=== PATIENT | female | born 1950 | race Caucasian/White ===

== ENCOUNTER 2020-11-02 11:38 | Emergency (ER) | payer OTHER ==
[~2020-11-02] VITALS: Ht 160 cm; Wt 81.6 kg
[2020-11-02] MEDS ORDERED: ACETAMINOPHEN 325 MG TAB PO ONE (12:45)
[2020-11-02 13:14] LABS: Urine Bacteria NONE SEEN /hpf (None Seen); Urine Blood Negative /uL (Negative); Urine Specific Gravity 1.011 (1.001-1.035); Urine WBC <1 /hpf (0 - 5)
[2020-11-02 13:24] LABS: Alcohol, Urine < 3.0 mg/dL (0-10); Amphetamine Screen, Urine NEGATIVE (NEGATIVE); Barbiturate Scree,Urine NEGATIVE (NEGATIVE); Cannabinoid Screen, Urine POSITIVE (NEGATIVE); Opiate Scree,Urine NEGATIVE (NEGATIVE)
[2020-11-02 13:32] LABS: Benzodiazephine Screen, Urine NEGATIVE (NEGATIVE); Cocaine Screen, Urine NEGATIVE (NEGATIVE); Phencyclidine Screen, Urine NEGATIVE (NEGATIVE)
[2020-11-02 13:53] LABS: Basophils # (auto) 0.1 10 ^3/uL (0-0.2); Eosinophils # (auto) 0.1 10 ^3/uL (0-0.8); Eosinophils % (auto) 1.7 % (0.0-7.0); Hematocrit 36.8 % (36.0-46.0); Hemoglobin 12.3 g/dL (12.2-16.2); Lymphocytes # (auto) 1.8 10 ^3/uL (0.4-5.4); Lymphocytes % (auto) 24.8 % (10.0-50.0); Mean Corpuscular Hemoglobin 30.7 pg (28.0-32.0); Mean Corpuscular Hgb Conc. 33.5 g/dL (32.0-36.0); Mean Corpuscular Volume 91.8 fL (80.0-100.0); Monocytes # (auto) 0.6 10 ^3/uL (0-1.3); Monocytes % (auto) 8.8 % (0.0-12.0); Neutrophils # (auto) 4.7 10 ^3/uL (1.6-8.6); Neutrophils % (auto) 63.7 % (37.0-80.0); Nucleated Red Blood Cells % 0.1 %; Platelet Count (auto) 315 10^3/uL (140-450); Red Blood Cells 4.01 10^6/uL (4.0-5.20); Red Cell Distribution Width 14.8 % (11.8-14.3); White Blood Cell 7.3 10^3/uL (4.4-10.8)
[2020-11-02 14:15] LABS: Acetaminophen < 2.0 ug/mL (10-30); Albumin 3.4 g/dL (3.4-5.0); Anion Gap 4 (5-15); Blood Alcohol < 3.0 mg/dL (0-5); Blood Urea Nitrogen 20 mg/dL (7-18); Calcium 8.9 mg/dL (8.5-10.1); Carbon Dioxide 29 mmol/L (21-32); Chloride 106 mmol/L (98-107); Glucose 100 mg/dL (74-106); Magnesium 2.7 mg/dL (1.6-2.6); Potassium 4.2 mmol/L (3.5-5.1); Salicylate 1.8 mg/dL (2.8-20.0); Sodium 139 mmol/L (136-145)
[2020-11-02 14:18] LABS: Alanine Aminotransferase 22 U/L (13-56); Alkaline Phosphatase 146 U/L (45-117); Aspartate Aminotransferase 25 U/L (15-37); BUN/Creatinine Ratio 28.2; Bilirubin, Total 0.4 mg/dL (0.2-1.0); GFR African American 105 mL/min; GFR Non-African American 87 mL/min; Total Protein 7.6 g/dL (6.4-8.2)
[2020-11-02] MEDS ORDERED: HALOPERIDOL LACTATE 5 MG/ML INJ VIAL IM ONE (17:00)
[2020-11-02] MEDS ORDERED: diphenhdrAMINE HCL 50 MG/1 ML VL IV ONE (17:00)
[2020-11-02] MEDS ORDERED: LORazepam 2MG/ML-1ML VIAL IV ONE (17:00)
[2020-11-02] MEDS ORDERED: LORazepam 2MG/ML-1ML VIAL ONE (17:01)
[2020-11-02] MEDS ORDERED: HALOPERIDOL LACTATE 5 MG/ML INJ VIAL ONE (17:02)
[2020-11-02] MEDS ORDERED: diphenhdrAMINE HCL 50 MG/1 ML VL ONE (17:02)
[2020-11-02] MEDS ORDERED: LORazepam 2MG/ML-1ML VIAL IM ONE (17:30)
[2020-11-02] MEDS ORDERED: diphenhdrAMINE HCL 50 MG/1 ML VL IM ONE (17:30)
[2020-11-03] MEDS ORDERED: IBUPROFEN 800 MG TAB PO ONE (02:45)
[2020-11-03] MEDS ORDERED: HALOPERIDOL LACTATE 5 MG/ML INJ VIAL IM PRN (08:15)
[2020-11-03] MEDS ORDERED: LORazepam 2MG/ML-1ML VIAL IM PRN (08:15)
[2020-11-03] MEDS ORDERED: diphenhdrAMINE HCL 50 MG/1 ML VL IM PRN (08:15)
[2020-11-03] MEDS: OLANZapine 5 MG TAB PO SCH ×2 (09:23→23:10)
[2020-11-03] MEDS ORDERED: diphenhdrAMINE HCL 50 MG/1 ML VL IV ONE (10:30)
[2020-11-03] MEDS ORDERED: HALOPERIDOL LACTATE 5 MG/ML INJ VIAL IM ONE ×2 (10:30→17:00)
[2020-11-03] MEDS ORDERED: diphenhdrAMINE HCL 50 MG/1 ML VL IM ONE ×2 (12:30→17:00)
[2020-11-03] MEDS ORDERED: LORazepam 2MG/ML-1ML VIAL IM ONE (17:00)
[2020-11-04] MEDS ORDERED: IBUPROFEN 600 MG TAB PO ONE (00:15)
[2020-11-04] MEDS: OLANZapine 5 MG TAB PO SCH ×2 (00:16→10:00)
[2020-11-04] MEDS ORDERED: NICOTINE 21MG/24 HR TOPICAL PATCH TD ONE (05:00)
[2020-11-04] MEDS ORDERED: cloNIDine HCL 0.1 MG TAB PO ONE (08:45)
[2020-11-04 09:53] VITALS: BP 119/48
== END 2020-11-04 10:09 | disposition designated cancer center or children's hospital (05) ==
LOC: EDBD 11:38 → ER 11:38
DX: S00.03XA Contusion of scalp, initial encounter (principal); F31.9 Bipolar disorder, unspecified; F41.9 Anxiety disorder, unspecified; R44.3 Hallucinations, unspecified; F17.210 Nicotine dependence, cigarettes, uncomplicated; Z91.14 Patient's other noncompliance with medication regimen; Z20.822 Contact with and (suspected) exposure to COVID-19; W18.09XA Striking against other object with subsequent fall, initial encounter; Y93.89 Activity, other specified; Y92.89 Other specified places as the place of occurrence of the external cause; Y99.8 Other external cause status
CPT/HCPCS: 36415; 70450; 71045; 72125; 80053; 80307; 80320; 80329; 81001; 83735; 85025; 87426; 96372; 99285; C9803; J1200; J1630; J2060; U0003

== ENCOUNTER 2020-11-29 07:20 | Emergency (ER) | payer OTHER ==
[~2020-11-29] VITALS: Ht 160 cm; Wt 82.1 kg
[2020-11-29] MEDS ORDERED: cloNIDine HCL 0.1 MG TAB PO ONE (07:45)
[2020-11-29] MEDS ORDERED: LORazepam 0.5 MG TAB PO ONE (08:15)
[2020-11-29 09:56] LABS: Urine Bacteria FEW /hpf (None Seen); Urine Blood Negative /uL (Negative); Urine Mucus FEW (None Seen); Urine Specific Gravity 1.021 (1.001-1.035); Urine WBC 2 /hpf (0 - 5)
[2020-11-29 11:15] VITALS: BP 149/64
== END 2020-11-29 11:44 | disposition home or self-care (01) ==
LOC: ER 07:20
DX: S46.911A Strain of unspecified muscle, fascia and tendon at shoulder and upper arm level, right arm, initial encounter (principal); F41.9 Anxiety disorder, unspecified; F32.9 Major depressive disorder, single episode, unspecified; F17.210 Nicotine dependence, cigarettes, uncomplicated; Z88.8 Allergy status to other drugs, medicaments and biological substances; W18.39XA Other fall on same level, initial encounter; Y93.89 Activity, other specified; Y92.89 Other specified places as the place of occurrence of the external cause; Y99.8 Other external cause status
CPT/HCPCS: 71045; 73030; 81001

== ENCOUNTER 2023-08-07 18:17 | Emergency (ER) | payer OTHER ==
[~2023-08-07] VITALS: Ht 160 cm; Wt 84.0 kg
[2023-08-07 19:11] VITALS: BP 196/96; PULSE 56; RESP 18; O2SAT 95
[2023-08-08 04:19] LABS: Basophils # (auto) 0.1 10 ^3/uL (0-0.2); Eosinophils # (auto) 0.3 10 ^3/uL (0-0.8); Eosinophils % (auto) 3.9 % (0.0-7.0); Hematocrit 43.2 % (36.0-46.0); Hemoglobin 14.2 g/dL (12.2-16.2); Lymphocytes # (auto) 1.7 10 ^3/uL (0.4-5.4); Lymphocytes % (auto) 24.2 % (10.0-50.0); Mean Corpuscular Hemoglobin 31.5 pg (28.0-32.0); Mean Corpuscular Hgb Conc. 32.8 g/dL (32.0-36.0); Monocytes # (auto) 0.6 10 ^3/uL (0-1.3); Monocytes % (auto) 8.7 % (0.0-12.0); Neutrophils # (auto) 4.3 10 ^3/uL (1.6-8.6); Neutrophils % (auto) 62.2 % (37.0-80.0); Nucleated Red Blood Cells % 0.1 %; Red Cell Distribution Width 14.5 % (11.8-14.3); White Blood Cell 6.9 10^3/uL (4.4-10.8)
[2023-08-08 04:38] LABS: Alanine Aminotransferase 19 U/L (7-40); Albumin 4.4 g/dL (3.2-4.8); Alkaline Phosphatase 107 U/L (46-116); Anion Gap 5 (5-15); Aspartate Aminotransferase 20 U/L (13-40); BUN/Creatinine Ratio 14.8 (10.0-20.0); Blood Urea Nitrogen 12 mg/dL (9-23); Calcium 9.4 mg/dL (8.7-10.4); Carbon Dioxide 28 mmol/L (20-30); Chloride 106 mmol/L (98-107); Glucose 97 mg/dL (74-106); Potassium 4.1 mmol/L (3.5-5.1); Sodium 139 mmol/L (136-145)
[2023-08-08 04:39] LABS: Bilirubin, Total 0.4 mg/dL (0.2-1.0); Total Protein 7.4 g/dL (5.7-8.2)
[2023-08-08] MEDS ORDERED: HYDROcodone-ACET 5/325MG TAB PO ONE (04:45)
[2023-08-08] MEDS ORDERED: TRAM50TA2 PO (04:52)
== END 2023-08-08 07:19 | disposition home or self-care (01) ==
LOC: ER 18:17 → EDBD 18:17 → ER 08-08 07:19
DX: M54.59 Other low back pain (principal); G89.29 Other chronic pain; M51.36 Other intervertebral disc degeneration, lumbar region; R60.0 Localized edema; F41.9 Anxiety disorder, unspecified; F32.9 Major depressive disorder, single episode, unspecified; F17.210 Nicotine dependence, cigarettes, uncomplicated; Z88.8 Allergy status to other drugs, medicaments and biological substances
CPT/HCPCS: 36415; 72131; 80053; 83880; 85025; 85379